=== PATIENT | female | born 1945 | race Caucasian/White ===

== ENCOUNTER 2021-03-15 16:40 | Inpatient (IN) ==
[2021-03-15] MEDS ORDERED: Naloxone 0.4 MG/ML INJ IVP PRN (22:47)
[2021-03-15] MEDS ORDERED: Ondansetron 4 MG/2 ML VIAL IVP PRN (22:47)
[2021-03-15] MEDS ORDERED: Acetaminophen 325 MG TABLET PO PRN (22:55)
[2021-03-15] MEDS ORDERED: GuaiFENesin Liq 200 MG/10 ML UDC PO PRN (23:36)
[2021-03-15] MEDS ORDERED: Acetylcysteine 10% 2 ML INHSOL IH SCH (23:45)
[2021-03-16] MEDS ORDERED: Albuterol 2.5 MG/3 ML NEBULIZER IH PRN (00:07)
[2021-03-16 00:40] LABS: Basophils % 0.2 %; Hematocrit 35.3 % (35.3-44.9); Hemoglobin 11.3 g/dL (11.5-15.4); Immature Granulocytes % 0.2 % (0-4); Immature Platelets 3.4 % (1.1-6.1); Lymphocytes # 0.3 K/mcL (0.6-4.6); Lymphocytes % 4.9 %; Mean Corpuscular Hemoglobin 30.1 pg (28.0-33.3); Mean Corpuscular Volume 93.9 fL (83.0-100.0); Mean Platelet Volume 10.8 fL (9.4-12.4); Monocytes # 0.5 K/mcL (0.0-1.3); Monocytes % 7.4 %; Neutrophils # 5.7 K/mcL (1.6-8.9); Platelet Count 123 K/mcL (140-400); Red Blood Count 3.76 M/mcL (3.82-4.97); Red Cell Distribution Width 13.1 % (11.5-14.5); Segmented Neutrophils % 87.3 %; White Blood Count 6.5 K/mcL (4.3-11.1)
[2021-03-16 00:42] LABS: INR 1.2; Prothrombin Time 13.3 Seconds (9.4-12.1)
[2021-03-16 00:49] LABS: Alanine Aminotransferase 17 Units/L (7-52); Albumin 3.8 g/dL (3.5-5.7); Albumin/Globulin Ratio 1.5 (1.1-2.2); Alkaline Phosphatase 29 Units/L (34-104); Aspartate Amino Transferase 26 Units/L (13-39); BUN/Creatinine Ratio 20 (6-26); Bilirubin,Direct 0.1 mg/dL (0.0-0.2); Bilirubin,Indirect 0.2 mg/dL (0.0-1.0); Bilirubin,Total 0.3 mg/dL (0.3-1.0); Blood Urea Nitrogen 20 mg/dL (8-23); C-Reactive Protein 11 mg/L (Less than 10); Calcium 7.7 mg/dL (8.6-10.3); Carbon Dioxide 20 mEq/L (23-29); Chloride 106 mEq/L (98-107); Cholesterol 147 mg/dL (< 200); Globulin 2.5 g/dL (2.4-3.5); Glucose 170 mg/dL (70-105); HDL Cholesterol 72 mg/dL (40-59); LDL Cholesterol,Calculated 65 mg/dL (< 100); Lactate Dehydrogenase 186 Units/L (140-271); Magnesium 1.6 mg/dL (1.6-2.6); Osmolality,Calculated 289 (280-300); Phosphorous 2.4 mg/dL (2.7-4.5); Potassium 3.6 mEq/L (3.5-5.1); Sodium 136 mEq/L (136-145); Total Protein 6.3 g/dL (6.4-8.9); Triglycerides 49 mg/dL (< 150); eGFR For African Americans > 60 (> 60); eGFR For Non-African Americans 54 (> 60)
[2021-03-16 01:15] LABS: Folate > 22.3 ng/mL (3.0-16.0); Vitamin B12 366 pg/mL (250-1100); Vitamin D 25 Hydroxy 28 ng/mL (30-80)
[2021-03-16] MEDS ORDERED: Perflutren Lipid Microsphere 1.3 ML in 0.9 % Sodium Chloride 8.7 ML IVP PRN (01:47)
[2021-03-16] MEDS ORDERED: *HR* Heparin 5,000 UNIT/ML VIAL IVP ONE (01:47)
[2021-03-16] MEDS ORDERED: *HR* Heparin 5,000 UNIT/ML VIAL IVP PRN ×2 (01:47)
[2021-03-16] MEDS: Heparin 25,000UNIT/250ML 1/2NS 25,000 UNIT/250 ML IV.SOLN IVC SCH (02:41)
[2021-03-16] MEDS ORDERED: Isovue-370 500 ML BOTTLE IVP ONE (08:07)
[2021-03-16] MEDS: Pantoprazole 40 MG VIAL IVP SCH (08:09)
[2021-03-16] MEDS ORDERED: Ipratropium Neb 0.5 MG NEBULIZER IH SCH (08:15)
[2021-03-16] MEDS ORDERED: *HR* Enoxaparin 40 MG/0.4 ML SYRINGE SQ SCH (09:00)
[2021-03-16] MEDS ORDERED: cefTRIAXone 1,000 MG in 0.9 % Sodium Chloride Mini Bag 100 ML IVPB SCH (09:00)
[2021-03-16] MEDS ORDERED: Azithromycin 500 MG in 0.9 % Sodium Chloride 250 ML IVPB SCH (09:00)
[2021-03-16] MEDS ORDERED: Ipratropium 1 PUFF INHALER IH ONE (11:23)
[2021-03-16] MEDS: Ipratropium 1 PUFF INHALER IH SCH ×4 (11:27→23:59)
[2021-03-16] MEDS ORDERED: Acetaminophen IV 1,000 MG/100 ML BAG IVPB ONE (15:50)
[2021-03-17 03:54] LABS: Basophils % 0.1 %; Hematocrit 38.1 % (35.3-44.9); Hemoglobin 12.5 g/dL (11.5-15.4); Immature Granulocytes % 0.3 % (0-4); Lymphocytes # 1.1 K/mcL (0.6-4.6); Lymphocytes % 9.4 %; Mean Corpuscular HGB Conc 32.8 g/dL (31.6-35.5); Mean Corpuscular Hemoglobin 30.6 pg (28.0-33.3); Mean Corpuscular Volume 93.4 fL (83.0-100.0); Mean Platelet Volume 10.8 fL (9.4-12.4); Monocytes # 0.3 K/mcL (0.0-1.3); Monocytes % 2.8 %; Neutrophils # 9.8 K/mcL (1.6-8.9); Platelet Count 131 K/mcL (140-400); Red Blood Count 4.08 M/mcL (3.82-4.97); Red Cell Distribution Width 13.3 % (11.5-14.5); Segmented Neutrophils % 87.4 %
[2021-03-17] MEDS: Heparin 25,000UNIT/250ML 1/2NS 25,000 UNIT/250 ML IV.SOLN IVC SCH (03:55)
[2021-03-17 03:56] LABS: White Blood Count 11.2 K/mcL (4.3-11.1)
[2021-03-17 04:04] LABS: Fibrinogen 349 mg/dL (169-393)
[2021-03-17] MEDS: Ipratropium 1 PUFF INHALER IH SCH ×5 (04:07→20:45)
[2021-03-17 04:08] LABS: D-Dimer 1523 ng/mLFEU (0-500)
[2021-03-17 04:22] LABS: Albumin 3.9 g/dL (3.5-5.7); Albumin/Globulin Ratio 1.3 (1.1-2.2); Bilirubin,Total 0.4 mg/dL (0.3-1.0); Calcium 8.3 mg/dL (8.6-10.3); Globulin 2.9 g/dL (2.4-3.5); Potassium 3.7 mEq/L (3.5-5.1); Total Protein 6.8 g/dL (6.4-8.9)
[2021-03-17] MEDS: Pantoprazole 40 MG VIAL IVP SCH (08:39)
[2021-03-17] MEDS ORDERED: cefTRIAXone 1,000 MG in 0.9 % Sodium Chloride Mini Bag 100 ML IVPB SCH (17:00)
[2021-03-17] MEDS ORDERED: Azithromycin 500 MG in 0.9 % Sodium Chloride 250 ML IVPB SCH (17:00)
[2021-03-17] MEDS ORDERED: *HR* Metoprolol 5 MG/5 ML VIAL IVP ONE (19:00)
[2021-03-17] MEDS ORDERED: *HR* Labetalol 20 MG/4 ML SYRINGE IVP ONE (22:24)
[2021-03-17] MEDS ORDERED: Acetaminophen IV 1,000 MG/100 ML BAG IVPB ONE (23:20)
[2021-03-18] MEDS: Ipratropium 1 PUFF INHALER IH SCH ×6 (00:13→19:55)
[2021-03-18] MEDS ORDERED: Acetaminophen 650 MG RECTAL SUPP RC ONE (05:27)
[2021-03-18 06:49] LABS: Hematocrit 42.4 % (35.3-44.9); Hemoglobin 13.2 g/dL (11.5-15.4); Mean Corpuscular HGB Conc 31.1 g/dL (31.6-35.5); Mean Corpuscular Hemoglobin 29.6 pg (28.0-33.3); Mean Corpuscular Volume 95.1 fL (83.0-100.0); Mean Platelet Volume 11.6 fL (9.4-12.4); Platelet Count 152 K/mcL (140-400); Red Blood Count 4.46 M/mcL (3.82-4.97); Red Cell Distribution Width 13.4 % (11.5-14.5)
[2021-03-18] MEDS ORDERED: Furosemide 20 MG/2 ML VIAL IVP ONE (07:13)
[2021-03-18] MEDS: Pantoprazole 40 MG VIAL IVP SCH (07:50)
[2021-03-18 08:00] LABS: Albumin 4.1 g/dL (3.5-5.7); Albumin/Globulin Ratio 1.4 (1.1-2.2); Bilirubin,Total 0.6 mg/dL (0.3-1.0); Calcium 8.6 mg/dL (8.6-10.3); Globulin 2.9 g/dL (2.4-3.5); Potassium 3.8 mEq/L (3.5-5.1)
[2021-03-18] MEDS ORDERED: Remdesivir 200 MG in 0.9 % Sodium Chloride 100 ML IVPB ONE (08:00)
[2021-03-18] MEDS ORDERED: Aspirin Enteric Coated 81 MG Tablet PO SCH (09:00)
[2021-03-18 09:03] LABS: Lymphocytes # 0.8 K/mcL (0.6-4.6); Platelet Estimate Normal (Normal)
[2021-03-19] MEDS ORDERED: *HR* Labetalol 20 MG/4 ML SYRINGE IVP ONE ×2 (00:36→00:37)
[2021-03-19] MEDS: Ipratropium 1 PUFF INHALER IH SCH ×5 (00:41→16:04)
[2021-03-19] MEDS ORDERED: 0.9 % Sodium Chloride 1,000 ML IV ONE (02:07)
[2021-03-19 02:12] LABS: Hematocrit 44.5 % (35.3-44.9); Hemoglobin 13.8 g/dL (11.5-15.4); Mean Corpuscular Volume 96.7 fL (83.0-100.0); Mean Platelet Volume 11.4 fL (9.4-12.4); Monocytes # 0.2 K/mcL (0.0-1.3); Platelet Count 163 K/mcL (140-400); Red Cell Distribution Width 13.6 % (11.5-14.5); White Blood Count 8.5 K/mcL (4.3-11.1)
[2021-03-19] MEDS ORDERED: Acetaminophen IV 1,000 MG/100 ML BAG IVPB ONE (02:15)
[2021-03-19 02:21] LABS: Albumin 3.8 g/dL (3.5-5.7); Albumin/Globulin Ratio 1.3 (1.1-2.2); Bilirubin,Direct 0.2 mg/dL (0.0-0.2); Bilirubin,Indirect 0.3 mg/dL (0.0-1.0); Bilirubin,Total 0.5 mg/dL (0.3-1.0); Total Protein 6.8 g/dL (6.4-8.9)
[2021-03-19 02:45] LABS: Alanine Aminotransferase 35 Units/L (7-52); Albumin 3.7 g/dL (3.5-5.7); Albumin/Globulin Ratio 1.2 (1.1-2.2); Alkaline Phosphatase 36 Units/L (34-104); Aspartate Amino Transferase 77 Units/L (13-39); BUN/Creatinine Ratio 36 (6-26); Bilirubin,Total 0.4 mg/dL (0.3-1.0); Blood Urea Nitrogen 53 mg/dL (8-23); C-Reactive Protein > 300 mg/L (Less than 10); Calcium 8.4 mg/dL (8.6-10.3); Carbon Dioxide 20 mEq/L (23-29); Chloride 118 mEq/L (98-107); Ferritin 1058 ng/mL (10-120); Globulin 3.1 g/dL (2.4-3.5); Glucose 222 mg/dL (70-105); Lactate Dehydrogenase 745 Units/L (140-271); Osmolality,Calculated 335 (280-300); Sodium 152 mEq/L (136-145); Total Protein 6.8 g/dL (6.4-8.9); eGFR For African Americans 42 (> 60); eGFR For Non-African Americans 35 (> 60)
[2021-03-19 02:57] LABS: D-Dimer 6503 ng/mLFEU (0-500); Fibrinogen 688 mg/dL (169-393)
[2021-03-19 04:00] LABS: Lymphocytes # 0.2 K/mcL (0.6-4.6); Neutrophils # 8.2 K/mcL (1.6-8.9)
[2021-03-19 04:01] LABS: Platelet Estimate Normal (Normal)
[2021-03-19] MEDS ORDERED: Isovue-370 500 ML BOTTLE IVP ONE (05:38)
[2021-03-19] MEDS ORDERED: Albumin 25% 25gram/100mL 25 GM/100 ML IV.SOLN IVPB ONE (05:52)
[2021-03-19] MEDS ORDERED: *HR* LORazepam Oral Conc 2 MG/ML SL PRN (07:33)
[2021-03-19] MEDS ORDERED: Atropine Sulfate 1% 40 DROP/2 ML BOTTLE SL PRN (07:34)
[2021-03-19 07:56] VITALS: PULSE 166; TEMP 98.4
[2021-03-19] MEDS ORDERED: Remdesivir 100 MG in 0.9 % Sodium Chloride 100 ML IVPB SCH (08:00)
[2021-03-19 08:10] VITALS: O2SAT 98
[2021-03-19] MEDS ORDERED: Morphine Sulfate 2 MG/ML SYRINGE IVP PRN (10:47)
[2021-03-19] MEDS: Morphine Sulfate Oral CONC 10 MG/0.5 ML ORAL.SYG SL SCH ×2 (12:40→16:39)
[2021-03-19 12:48] VITALS: BP 115/66
== END 2021-03-19 18:42 | disposition expired | DRG 177 ==
LOC: 3BNU → SUATTDRO 22:47
PROVIDERS: ADMIT Student in an Organized Health Care Education/Training Program; ATTEND Registered Nurse